=== PATIENT | male | born 1960 | race Caucasian/White ===

== ENCOUNTER 2017-05-01 11:15 | Emergency (ER) | payer SELFPAY ==
[~2017-05-01] VITALS: Ht 165.1 cm; Wt 55.0 kg
[~2017-05-01 11:15] MED LIST: AMLO10 PO; ENAL10 PO; HYDR-3533 PO; HYDRA25 PO; KCL20 PO; METO50TA PO; NIGH25TA PO; PHEN100 PO; PROT40TA PO; VIST50CA PO; [UNRECOGNIZED DRUG - CODE] PO
[2017-05-01 11:18] VITALS: BP 162/100; PULSE 92; RESP 18; TEMP 98.3; O2SAT 98
--- NOTE | 2017-05-01 11:24 | PD ---
Physical Exam Date Seen by Provider: May 01, 2017 Time Seen by Provider: 11:22 Narrative 57 yo male here for abdominal pain and colostomy bag replacement. History of colostomy and has ran out of bags, he is making his own bags. No injuries. States that he has chronic pain on his abdomen. Pain is 9/10. Denies any new symptoms. Vitals are stable in triage. Awaiting bed placement. Data Data Last Documented VS Vital Signs Date Time Temp Pulse Resp B/P (MAP) Pulse Ox O2 Delivery O2 Flow Rate FiO2 05/01/17 11:18 98.3 92 18 162/100 (120) 98 Room Air [facility] Medical Record Reviewed: Yes Supervised Visit with CLAUDY: Sage Ahuja May 01, 2017 11:24
--- NOTE | 2017-05-01 13:33 | PD ---
HPI Chief Complaint: GI Complaint Time Seen by Provider: 13:00 Travel History International Travel<30 days: No Contact w/Intl Traveler<30days: No Traveled to known affect area: No History of Present Illness HPI 57-year-old male with colostomy here requesting colostomy bags. Patient reporting that he is uninsured and unable to afford bags. He reports he has chronic abdominal pain. He does not endorse worsening pain. He denies fever, n /v, abd distention. PFSH Past Medical History Medical History: Denies Significant Hx Hx Anticoagulant Therapy: No Anxiety: Yes Cancer: No Cardiovascular Problems: No Chemotherapy: No Cerebrovascular Accident: No Diabetes: No Diverticulitis: Yes Endocrine: No Gastrointestinal Disorders: Yes (DIVERTICULI) Genitourinary: No Immune Disorder: No Musculoskeletal: Yes (DDD- "SEVERAL HERNIATED DISKS") Neurologic: No Psychiatric: Yes Reproductive: No Respiratory: Yes (COPD) Past Surgical History Abdominal Surgery: Yes (October 2015) Hysterectomy: No Other Surgery: Yes Social History Alcohol Use: Yes (hx) Tobacco Use: Yes (hx 1/2 PPD) Substance Use: No Allergies-Medications (Allergen,Severity, Reaction): Coded Allergies: *MDRO Multi-Drug Resistant Organism (Verified Adverse Reaction, Unknown, ) 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 Reported Meds & Prescriptions Reported Meds & Active Scripts Active Vistaril 50 MG CAP (Hydroxyzine Pamoate) 50 Mg Cap 2 Tab PO HS PRN Protonix (Pantoprazole Sodium) 40 Mg Tabdr 40 Mg PO DAILY Vasotec 10 Mg Tab (Enalapril Maleate) 10 Mg Tab 10 Mg PO BID Gnp Vitamin B-1 (Thiamine HCl) 100 Mg Tab 100 Mg PO TID Kcl 20 Meq Tab (Potassium Chloride) 20 Meq Tabcr 20 Meq PO DAILY Metoprolol Tartrate 50 Mg Tab 50 Mg PO Q12HR Hydralazine HCl 25 Mg Tab 25 Mg PO Q8H Norvasc (Amlodipine Besylate) 10 Mg Tab 10 Mg PO DAILY Dilantin 100 Mg Kapseals (Phenytoin Sodium) 100 Mg Caper 100 Mg PO Q8HR 30 Days Reported Night Time Sleep Aid (Diphenhydramine Hcl (Sleep)) 25 Mg Tab 25 Mg PO Lortab 5 mg/325 mg (Hydrocodone/Acetaminophen 5 mg/325 mg) 1 Tab 1-2 Tab PO Q4H PRN Review of Systems Except as stated in HPI: all other systems reviewed are Neg General / Constitutional: No: Fever Physical Exam Narrative GENERAL: SKIN: Warm and dry. Stoma left abd wall healthy appearing. colostomy bag present with brown semi solid stool. HEAD: Normocephalic. NECK: Supple, trachea midline. No JVD or lymphadenopathy. CARDIOVASCULAR: Regular rate and rhythm without murmurs, gallops, or rubs. RESPIRATORY: Breath sounds equal bilaterally. No accessory muscle use. GASTROINTESTINAL: Abdomen soft, non-tender, nondistended. Colostomy present. Data Data Last Documented VS Vital Signs Date Time Temp Pulse Resp B/P (MAP) Pulse Ox O2 Delivery O2 Flow Rate FiO2 05/01/17 11:18 98.3 92 18 162/100 (120) 98 Room Air Orders Orders Colostomy Kit 2 1/" Moldable (05/01/17 13:23) Ketorolac Inj (Toradol Inj) (05/01/17 13:45) MDM Medical Decision Making Medical Screen Exam Complete: Yes Emergency Medical Condition: Yes Differential Diagnosis Chronic abdominal pain, unlikely bowel obstruction, other Narrative Course 57-year-old male with colostomy here requesting colostomy bags. Patient reporting that he is uninsured and unable to afford bags. He reports he has chronic abdominal pain. He does not endorse worsening pain. On exam his abdomen soft and nontender. There is brown liquid stool in the colostomy bag. The stoma is healthy appearing. Patient was given resources for medical supplies. Colostomy bag supply given to patient. Diagnosis Primary Impression: Colostomy care Additional Impression: Chronic abdominal pain Referrals: [facility] Additional Instructions: You were given resources regarding how to obtain colostomy bag supplies. Follow-up with the [facility]. Return to the emergency department if he developed new or worsening symptoms. Disposition: 01 DISCHARGE HOME Condition: Stable Rossana Hairston May 01, 2017 13:33
[2017-05-01] MEDS ORDERED: KETOROLAC TROMETHAMINE 60 MG/2 ML (IM) VIAL IM ONE (13:45)
== END 2017-05-01 13:50 | disposition home or self-care (01) ==
LOC: NEPD 11:15
DX: Z43.3 Encounter for attention to colostomy (principal); R10.9 Unspecified abdominal pain; G89.29 Other chronic pain; Z72.0 Tobacco use; Z86.59 Personal history of other mental and behavioral disorders; Z87.19 Personal history of other diseases of the digestive system; Z87.39 Personal history of other diseases of the musculoskeletal system and connective tissue; Z87.09 Personal history of other diseases of the respiratory system
CPT/HCPCS: 96372; 99284; J1885